=== PATIENT | male | born 1995 | race Hispanic/Latino ===

== ENCOUNTER 2018-08-20 08:00 | Observation (INO) | payer SELFPAY ==
[2018-08-20] VITALS (22 sets, daily range): BP systolic 91–129; BP diastolic 54–93
[~2018-08-20] VITALS: Ht 172.7 cm; Wt 108.9 kg
[2018-08-20] MEDS ORDERED: ONDANSETRON HCL 4 MG/2 ML VIAL ONE (08:32)
[2018-08-20] MEDS ORDERED: MORPHINE SULFATE 4 MG/1ML SYG ONE ×2 (08:32→09:23)
[2018-08-20] MEDS ORDERED: FAMOTIDINE/PF 20 MG/2 ML VIAL IV ONE (08:33)
[2018-08-20 08:40] LABS: BASOPHILS % (AUTO) 0.8 % (0.0-5.0); EOSINOPHILS % (AUTO) 0.7 % (0.0-8.0); HEMATOCRIT 47.4 % (42-54); LYMPHOCYTES % (AUTO) 19.8 % (21.0-51.0); MEAN CORPUSCULAR HEMOGLOBIN 28.3 pg (27.0-33.0); MEAN CORPUSCULAR HGB CONC 33.3 g/dL (32.0-36.0); MEAN CORPUSCULAR VOLUME 84.9 fL (79-99); MONOCYTES % (AUTO) 6.4 % (3.0-13.0); NEUTROPHILS % (AUTO) 72.3 % (40.0-77.0); NUCLEATED RED BLOOD CELLS 0.1 % (0.0-0.19); PLATELET COUNT (AUTO) 185 K/uL (130-400); RED BLOOD CELL COUNT(AUTO) 5.58 MIL/uL (4.50-6.20); RED CELL DISTRIBUTION WIDTH 12.5 % (11.0-15.5)
[2018-08-20 08:42] LABS: APPEARANCE,URINE Clear (CLEAR); BILIRUBIN,URINE Negative (NEGATIVE); COLOR,URINE Yellow (YELLOW); GLUCOSE, URINE (UA) Negative (NEGATIVE); KETONES,URINE Negative (NEGATIVE); LEUKOCYTE ESTERASE ,URINE Negative (NEGATIVE); NITRATE,URINE Negative (NEGATIVE); OCCULT BLOOD,URINE Negative (NEGATIVE); PH,URINE 7.5 (5.0-8.0); PROTEIN,URINE Negative (NEGATIVE)
[2018-08-20 08:50] LABS: AMPHET/METH SCREEN,URINE NEGATIVE (NEGATIVE); BARBITURATE SCREEN, URINE NEGATIVE (NEGATIVE); BENZODIAZEPINES SCREEN,URINE NEGATIVE (NEGATIVE); CANNABINOID SCREEN,URINE NEGATIVE (NEGATIVE); COCAINE SCREEN,URINE NEGATIVE (NEGATIVE); OPIATE SCREEN,URINE NEGATIVE (NEGATIVE); PHENCYCLIDINE SCREEN,URINE NEGATIVE (NEGATIVE)
[2018-08-20 08:53] LABS: CREATININE 0.9 mg/dL (0.5-1.5)
[2018-08-20 08:59] LABS: ALBUMIN 4.1 g/dL (3.5-5.0); BILIRUBIN,TOTAL 0.9 mg/dL (0.2-1.0); TOTAL PROTEIN, SERUM 8.2 g/dL (6.0-8.3)
[2018-08-20] MEDS ORDERED: SODIUM CHLORIDE 0.9% 50 ML IV ONE (10:10)
[2018-08-20] MEDS ORDERED: ZOSYN 3.375GM+NS 50ML 50 ML IV ONE (10:10)
[2018-08-20] MEDS ORDERED: ONDANSETRON HCL 4 MG/2 ML VIAL IVP PRN (10:45)
[2018-08-20] MEDS ORDERED: MORPHINE SULFATE 4 MG/1ML SYG IVP PRN (10:45)
[2018-08-20] MEDS ORDERED: SODIUM CHLORIDE 0.9% 1000ML 1,000 ML IV SCH (10:45)
[2018-08-20] MEDS ORDERED: SODIUM CHLORIDE 0.9% 1000ML 1,000 ML IV ONE (10:54)
[2018-08-20] MEDS ORDERED: SUCCINYLCHOLINE 200MG/10ML SYR ONE (15:51)
[2018-08-20] MEDS ORDERED: PROPOFOL 10 MG/ML 20ML VIAL IV ONE ×2 (15:51→16:46)
[2018-08-20] MEDS ORDERED: LIDOCAINE PF 2% 5ML ABBOJECT ONE (15:51)
[2018-08-20] MEDS ORDERED: FENTANYL CITRATE PF 50 MCG/1 ML 2ML VIAL ONE (15:51)
[2018-08-20] MEDS ORDERED: ROCURONIUM 10MG/1ML SYR 10 MG/ML ML ONE (15:51)
[2018-08-20] MEDS ORDERED: CEFAZOLIN SODIUM 1 GM VIAL ONE (15:57)
[2018-08-20] MEDS ORDERED: BUPIVACAINE/PF 0.5% 30ML VIAL ONE (15:58)
[2018-08-20] MEDS ORDERED: GLYCOPYRROLATE 1 MG/5 ML SYRINGE ONE (16:35)
[2018-08-20] MEDS ORDERED: NEOSTIGMINE 5MG/5ML SYR IV ONE (16:36)
[2018-08-20] MEDS ORDERED: KETOROLAC TROMETHAMINE 30MG/ML ONE (16:50)
[2018-08-20] MEDS ORDERED: MEPERIDINE-PF 25 MG/ML SYG ONE (17:28)
[2018-08-20] MEDS ORDERED: ACETAMINOPHEN-CODEINE 300/30MG TAB PO PRN (19:00)
[2018-08-21 03:00] VITALS: BP 129/79
[2018-08-21 07:51] VITALS: BP 137/71
[2018-08-21 11:00] VITALS: BP 119/64
--- NOTE | 2018-08-21 13:09 | NUR ---
PT D/C EDUCATION GIVEN USING TEACH SATISFACTORILY PT DENIES SOB OR CHEST PAIN IV REMOVED, CATHTTER INTACT IN DEPTH EDUCATION GIVEN PER DR. GOEL'S ORDERS REFER TO D/C SUMMARY
== END 2018-08-21 13:18 | disposition home or self-care (01) ==
LOC: EDH 08:00 → EDHIP 08:01 → 4AH 11:15
PROVIDERS: ADMIT Student in an Organized Health Care Education/Training Program; ATTEND Student in an Organized Health Care Education/Training Program
DX: K81.0 Acute cholecystitis (principal); Z79.899 Other long term (current) drug therapy
CPT/HCPCS: 36415; 47562; 74176; 76705; 80053; 80305; 81003; 83690; 85025; 88304; 99284; A4649 ×3; A4930 ×2; A6206; A6207; C1769 ×3; G0378 ×29; J0330; J0690; J1885; J2001; J2175; J2270 ×2; J2405; J2543; J2704 ×2; J2710; J3010; J3490 ×3; J7030 ×2